=== PATIENT | female | born 1990 | race Caucasian/White ===

== ENCOUNTER 2018-07-28 06:35 | Inpatient (IN) | payer OTHER ==
[2018-07-28] MEDS ORDERED: ONDANSETRON 4 MG/2 ML VIAL ONE (06:44)
[2018-07-28] MEDS ORDERED: ONDANSETRON 4 MG/2 ML VIAL IVP ONE (06:54)
[2018-07-28] MEDS ORDERED: NS 1,000 ML IV ONE ×2 (06:56→09:01)
[2018-07-28 07:06] LABS: PLATELET COUNT 262 10^3/uL (150-400)
--- NOTE | 2018-07-28 07:24 | EDPHY ---
H & P Stated Complaint: upper abd pain since 299, N/V Time Seen by Provider: 07/28/18 07:07 HPI/ROS: CHIEF COMPLAINT: Abdominal pain, vomiting HISTORY OF PRESENT ILLNESS: 27-year-old female presents with abdominal pain and vomiting. She awoke at 3:00 a.m. with sharp and stabbing upper abdominal pain. She went back to sleep. When she awoke at 5:45am, she had worsening upper abdominal pain, sharp and stabbing, associated with 1 episode of vomiting. She continues to have moderate upper abdominal pain. No fever, diarrhea or constipation. No prior abdominal surgery and no prior similar symptoms. REVIEW OF SYSTEMS: complete 10 point ROS reviewed and is negative except for the noted elements in the HPI - Personal History LMP (Females 10-55): 22-28 Days Ago Current Tetanus/Diphtheria Vaccine: Yes - Medical/Surgical History Hx Asthma: No Hx Chronic Respiratory Disease: No Hx Diabetes: No Hx Cardiac Disease: No Hx Renal Disease: No Hx Cirrhosis: No Hx Alcoholism: No Hx HIV/AIDS: No Hx Splenectomy or Spleen Trauma: No Other PMH: denies - Social History Smoking Status: Never smoked - Physical Exam Exam: General Appearance: Alert, pleasant Eyes: Pupils equal and round, no conjunctival pallor ENT, Mouth: Mucous membranes moist Neck: Normal inspection Respiratory: Lungs are clear to auscultation Cardiovascular: Regular rate and rhythm Gastrointestinal: Abdomen is soft, lower abdominal tenderness, especially in the right lower quadrant Neurological: A&O, nonfocal, normal gait Skin: Warm and dry Extremities: Normal inspection Psychiatric: Mood and affect normal Constitutional: Initial Vital Signs Temperature (C) 36.4 C 07/28/18 06:38 Heart Rate 108 H 07/28/18 06:38 Respiratory Rate 18 07/28/18 06:38 Blood Pressure 95/65 L 07/28/18 06:38 O2 Sat (%) 96 07/28/18 06:38 O2 Delivery Mode Room Air O2 (L/minute) 2 Allergies/Adverse Reactions: Penicillins Allergy (Verified 07/28/18 11:23) Rash shellfish derived Allergy (Verified 07/28/18 11:23) Home Medications: Medication Instructions Recorded Acetaminophen [Tylenol 325mg (*)] 325 mg PO DAILY PRN 07/28/18 Albuterol [Proventil Inhaler HFA 1 - 2 puffs IH Q4H PRN 07/28/18 (*)] Ferrous Sulfate [Ferrous Sulf 325 325 mg PO DAILY 07/28/18 MG (*)] Herbals/Supplements -Info Only 1 ea PO DAILY 07/28/18 Norethindrone [Norlyda] 0.35 mg PO DAILY 07/28/18 Spironolactone [Aldactone 25 MG 25 mg PO BID 07/28/18 (*)] Medical Decision Making - Diagnostics Imaging Results: Imaging Impressions Abdomen Ultrasound 07/28/18 07:15 Impression: 1. Complex 6.9 cm right ovarian cyst demonstrates papillary projections. Findings are suspicious and would recommend MRI and/or gynecologic evaluation. The right ovary has color flow. 2. Nonvisualization of the appendix. Findings and recommendations discussed with RAY CHILEL at 841 hour, 2018. Pelvic/Renal Ultrasound 07/28/18 07:15 Impression: 1. Complex 6.9 cm right ovarian cyst demonstrates papillary projections. Findings are suspicious and would recommend MRI and/or gynecologic evaluation. The right ovary has color flow. 2. Nonvisualization of the appendix. Findings and recommendations discussed with RAY CHILEL at 841 hour, 2018. Abdomen CT 07/28/18 09:01 Impression: 1. Suggestion of a small bowel obstruction with transition point either in the lower mid abdomen, where there is a complex adnexal cyst measuring 6.6 cm, or in the right lower quadrant where there is a loop of thickened, inflamed bowel. The latter finding could represent inflammatory (Crohn's/UC) or infectious process. Appendix is not distended. 2. Small amount of mesenteric edema and fluid. Likely reactive. Findings and recommendations discussed with RAY CHILEL at 1021 hour, 2018. Imaging: Discussed imaging studies w/ grassroots organizer Radiologist ED Course/Re-evaluation: MDM: Abd pain, vomiting with RLQ tenderness, ?appy. Sono ordered. IV NS given. 8:40 a.m.-ultrasound reveals a 6.9 cm complex ovarian cyst with good blood flow. The appendix is not visualized. Results discussed with the patient. Abdomen is soft, tenderness over McBurney's point, no pelvic tenderness. Will obtain a CT scan of the abdomen pelvis to evaluate for possible appendicitis. CT scan of the abdomen pelvis reveals a small bowel obstruction. Dr. Ace was consulted and saw the patient in the emergency department. Dr. White was consulted and will see the patient. Pt felt better while in the ED. Abd exam- unchanged. NPO throughout. Differential Diagnosis: Differential diagnosis includes though it is not limited to appendicitis, cholecystitis, diverticulitis, pyelonephritis, bowel perforation, small bowel obstruction. - Data Points Laboratory Results: Laboratory Results 07/28/18 06:55 07/28/18 06:55 07/28/18 07/28/18 07/28/18 07:58 06:55 06:55 WBC RBC Hgb Hct MCV MCH MCHC RDW Plt Count MPV Neut % (Auto) Lymph % (Auto) [place] % (Auto) Eos % (Auto) Baso % (Auto) Nucleat RBC Rel Count Absolute Neuts (auto) Absolute Lymphs (auto) Absolute Monos (auto) Absolute Eos (auto) Absolute Basos (auto) Absolute Nucleated RBC Immature Gran % Immature Gran # Sodium Potassium Chloride Carbon Dioxide Anion Gap BUN Creatinine Estimated GFR Glucose Calcium CA 125 Antigen 15.6 U/mL U/mL (0.0-35.0) Beta HCG, Qual NEGATIVE Urine Color JENY Urine Appearance CLEAR Urine pH 7.0 (5.0-7.5) Ur Specific [place] 1.024 (1.002-1.030) Urine Protein NEGATIVE (NEGATIVE) Urine Ketones NEGATIVE (NEGATIVE) Urine Blood NEGATIVE (NEGATIVE) Urine Nitrate NEGATIVE (NEGATIVE) Urine Bilirubin NEGATIVE (NEGATIVE) Urine Urobilinogen 2.0 EU H EU (0.2-1.0) Ur Leukocyte Esterase NEGATIVE (NEGATIVE) Urine Glucose NEGATIVE (NEGATIVE) 07/28/18 07/28/18 06:55 06:55 WBC 11.75 10^3/uL H 10^3/uL (3.80-9.50) RBC 4.98 10^6/uL 10^6/uL (4.18-5.33) Hgb 15.6 g/dL g/dL (12.6-16.3) Hct 45.6 % % (38.0-47.0) MCV 91.6 fL fL (81.5-99.8) MCH 31.3 pg pg (27.9-34.1) MCHC 34.2 g/dL g/dL (32.4-36.7) RDW 11.9 % % (11.5-15.2) Plt Count 262 10^3/uL 10^3/uL (150-400) MPV 10.0 fL fL (8.7-11.7) Neut % (Auto) 72.2 % % (39.3-74.2) Lymph % (Auto) 21.5 % % (15.0-45.0) [place] % (Auto) 5.0 % % (4.5-13.0) Eos % (Auto) 0.3 % L % (0.6-7.6) Baso % (Auto) 0.7 % % (0.3-1.7) Nucleat RBC Rel Count 0.0 % % (0.0-0.2) Absolute Neuts (auto) 8.49 10^3/uL H 10^3/uL (1.70-6.50) Absolute Lymphs (auto) 2.53 10^3/uL 10^3/uL (1.00-3.00) Absolute Monos (auto) 0.59 10^3/uL 10^3/uL (0.30-0.80) Absolute Eos (auto) 0.03 10^3/uL 10^3/uL (0.03-0.40) Absolute Basos (auto) 0.08 10^3/uL 10^3/uL (0.02-0.10) Absolute Nucleated RBC 0.00 10^3/uL 10^3/uL (0-0.01) Immature Gran % 0.3 % % (0.0-1.1) Immature Gran # 0.03 10^3/uL 10^3/uL (0.00-0.10) Sodium 138 mEq/L mEq/L (135-145) Potassium 4.2 mEq/L mEq/L (3.5-5.2) Chloride 101 mEq/L mEq/L (97-110) Carbon Dioxide 24 mEq/l mEq/l (22-31) Anion Gap 13 mEq/L mEq/L (6-14) BUN 17 mg/dL mg/dL (7-23) Creatinine 0.9 mg/dL mg/dL (0.6-1.0) Estimated GFR > 60 Glucose 121 mg/dL H mg/dL (70-100) Calcium 10.4 mg/dL mg/dL (8.5-10.4) CA 125 Antigen Beta HCG, Qual Urine Color Urine Appearance Urine pH Ur Specific [place] Urine Protein Urine Ketones Urine Blood Urine Nitrate Urine Bilirubin Urine Urobilinogen Ur Leukocyte Esterase Urine Glucose Medications Given: Discontinued Medications Sodium Chloride (Ns) 1,000 mls @ 0 mls/hr IV EDNOW ONE; Wide Open PRN Reason: Protocol Stop: 07/28/18 06:57 Last Admin: 07/28/18 06:57 Dose: 1,000 mls Sodium Chloride (Ns) 1,000 mls @ 0 mls/hr IV EDNOW ONE; Wide Open PRN Reason: Protocol Stop: 07/28/18 09:02 Last Admin: 07/28/18 09:04 Dose: 1,000 mls Morphine Sulfate (Morphine) 4 mg IVP EDNOW ONE Stop: 07/28/18 07:25 Last Admin: 07/28/18 07:27 Dose: 4 mg Ondansetron HCl (Zofran) 4 mg IVP EDNOW ONE Stop: 07/28/18 06:55 Last Admin: 07/28/18 06:57 Dose: 4 mg Departure - Departure Disposition: [facility] Inpatient Acute Clinical Impression: Small bowel obstruction Ovarian cyst Qualifiers: Laterality: right Qualified Code(s): N83.201 - Unspecified ovarian cyst, right side Condition: Fair
[2018-07-28] MEDS ORDERED: IOPAMIDOL (ISOVUE-300) 100 ML BTL ONE (09:28)
[2018-07-28] MEDS ORDERED: GADOBUTROL 10 ML VIAL IVP ONE (12:58)
[2018-07-28] MEDS ORDERED: ONDANSETRON 4 MG/2 ML VIAL IVP PRN ×2 (13:18)
[2018-07-28] MEDS ORDERED: HYDROmorphONE/DILAUDID 1 MG/ML INJ IVP PRN (13:18)
[2018-07-28] MEDS ORDERED: ALBUTEROL 60 PUFFS/8 GM MDI IH PRN (13:21)
[2018-07-28] MEDS ORDERED: ACETAMINOPHEN 325 MG TAB PO PRN (13:21)
--- NOTE | 2018-07-28 13:46 | GCON ---
[f rep st] CONSULTATION REFERRING PHYSICIAN: Jalen Ace MD I was asked by Dr. Jose Ace to evaluate the patient; there is concern for ovarian cyst causing small bowel obstruction. HISTORY OF PRESENT ILLNESS: Patient is a 27-year-old nulliparous female with last menstrual period about a month ago, who presented to ED with acute onset of abdominal pain and vomiting. The patient states the pain started in her upper abdomen around 0300 this morning and it woke her up. She describes pain as sharp and stabbing with no radiation. She then went back to sleep and awoke again at 0545 with worsening upper abdominal pain, and had an episode of vomiting which was mostly bile. She endorses nausea but no further vomiting since here is the hospital. Pain is minimal at this time and 05/08. The patient denies any urinary complaints and had a bowel movement this morning and noticed it was harder than usual. The patient denies any fevers, chills, chest pain, or shortness of breath. She also denies any abnormal vaginal bleeding or abnormal vaginal discharge. The patient is currently on the progestin-only pill and does not have a history of ovarian cysts. PAST INTELLECTUAL PROPERTY MANAGER HISTORY: Age of menarche 15. Cycles are mostly regular. She was on OCPs and noticed her migraine headaches were worse, about a year ago, she was switched to progestin-only pill. No history of abnormal Pap smears. Patient denies any exposure to STDs. PAST OB HISTORY: Patient is nulliparous. PAST MEDICAL HISTORY: Remarkable for migraines with headaches, acne. PAST SURGICAL HISTORY: [place] teeth extraction. CURRENT MEDICATIONS: Progestin-only pill and Spironolactone. ALLERGIES: Penicillin, reaction is rash; Shellfish. SOCIAL HISTORY: Patient is in a monogamous relationship. She denies any alcohol, tobacco, or illicit drug use. FAMILY HISTORY: Unremarkable. REVIEW OF SYSTEMS: 10-point review of systems is negative. Pertinent positives noted in HPI. LABORATORY: WBC 11.75. H and H, 15.6 and 45.6. BMP is normal except for an elevated glucose 121. Beta HCG is negative. Urine is normal. DIAGNOSTIC STUDIES: Pelvic ultrasound reveals a complex 6.9 x 6.1cm right ovarian cyst with papillary projections; there is flow. Left ovary is normal with flow. There is a small amount of free fluid in the pelvis. Uterus is heterogeneous in echotexture, measuring 7 x 3 x 4 cm. Endometrial stripe measures 0.4 cm. CAT scan of the abdomen reveals small bowel distended with fluid, measures up to 3.4 cm. There is equalization in the mid lower abdomen with possible transition point in this region. There is also thickening and decompression of a small bowel loop in the right lower quadrant. Findings are in close proximity to a right adnexal cyst which measures 6.5 cm. The appendix is normal appearing. PHYSICAL EXAMINATION: VITAL SIGNS: Stable. Blood pressure is 114/58, heart rate 80, respirations 16, saturating 93% on room air. Afebrile at 36.6. GENERAL : The patient is a well-nourished, well-developed female,. Alert and oriented x3. No apparent distress. SKIN: Warm, dry without rash. NEURO: Grossly intact. CARDIOVASCULAR: Regular rate and rhythm. LUNGS: Clear to auscultation bilaterally. ABDOMEN: There is diffuse mild tenderness, but more tenderness noted right lower quadrant. No rebound or guarding noted. PELVIC: Deferred. EXTREMITIES: Normal to inspection without calf tenderness or edema. ASSESSMENT AND PLAN: Patient is a 27-year-old nulliparous female with acute onset of abdominal pain and vomiting with a 6.9 cm complex right ovarian cyst with papillary projections and small bowel obstruction. 1) Reviewed ultrasound findings and different etiologies for a complex cyst include endometriomas, teratomas/dermoids, cystadenomas, or hemorrhagic cysts. 2) There is flow to the right ovary, so torsion is ruled out at this time. I am concerned about the papillary projections that were seen on ultrasound and feel an MRI of the pelvis with contrast is needed at this time to further evaluate the complex nature of the cyst; this cyst may represent a borderline tumor most are serous or mucinous. 3) Will hold off on taking the patient to surgery at this time, but will keep NPO for now. 4) Will check a CA-125, understand is it not used for screening purposes. 5) Will add an antiemetic for her nausea. 6) Unsure about associated SBO and exact cause, but hopefully MRI will be helpful. /[id number]/MODL MTDD
--- NOTE | 2018-07-28 14:46 | GHP ---
[f rep st] PREOP HISTORY AND PHYSICAL DATE OF ADMISSION: 07/28/2018 The patient is a 27-year-old female who presents with crampy abdominal pain after waking. She had a normal bowel movement yesterday. [place] and feels somewhat dehydrated and has not had a bowel movement for 2 days. She presents with a possible small bowel obstruction a s seen on CT scan. She, however, also has a 6 or 7 cm right ovarian cyst in the same area as the pos sible transition zone for the CT scan. Denies any diarrhea, fever, bloody bowel movements, or vomiti ng any blood. She has not been overly nauseated or vomiting. She is admitted at this time for obser vation and ARMY RANGER consult. REVIEW OF SYSTEMS: Ten-point review of systems is negative except as related to the HPI. PAST MEDICAL HISTORY: Includes exercise-induced asthma. No other major surgeries, hospitalizations, or serious illnesses. Last period was 1 month ago. SOCIAL HISTORY: She does not smoke. FAMILY HISTORY: Noncontributory. MEDICATIONS: control pills, Proventil inhaler, iron tablets and spironolactone. ALLERGIES: Penicillin. PHYSICAL EXAMINATION: GENERAL: An alert, comfortable 27-year-old female in no acute distress, afebr ile. HEENT: Nonicteric without adenopathy or oral lesions. NECK: Supple, nontender without thyrom egaly. CHEST: Clear. CARDIAC: Exam reveals a regular rhythm. ABDOMEN: Soft, slightly distended, not particularly tender. Positive bowel sounds. No hernias. PELVIS: Exam reveals her pelvis to b e intact, and internal exam was deferred to the school library media program director. EXTREMITIES: Full range of motion, fu ll pulses. NEUROLOGIC: Exam was physiologic and symmetric. PSYCH: Exam reveals her to be alert, o riented and cooperative. IMPRESSION: 1. Possible small bowel obstruction of uncertain etiology, possibly related to inflammation from her ovarian cyst. She has no history of pelvic inflammatory disease, has had no vaginal drainage or dif ficulties. 2. Right ovarian cyst. PLAN: Admit for observation, IV fluids and a ARMY RANGER consult. /[id number]/MODL
[2018-07-28] MEDS: D5W 1/2 NS W/ 20 KCl/L 1,000 ML IV SCH ×2 (15:02→22:05)
--- NOTE | 2018-07-28 15:13 | PDMN ---
Medical Necessity Medical necessity: MCG M210 intestinal obstruction SBO CT shows suggestion of SBO with transition point either in lower mid abd. , where there is complex adnexal cyst , or in RLQ where there is a loop of thickened, inflamed bowel. 27yoF with crampy abd pian, without BM X 2 days, PT will be NPO with CHAIN MENDER consult- anticipate > 2 MN ongoing monitoring further eval and tx. bowel rest. IVF, IV pain, IV antiemetics,
--- NOTE | 2018-07-28 16:43 | SOAPPROG ---
SOAP Progress Note Assessment/Plan: Assessment: 27 y/o nulliparous female with acute onset abdominal pain and vomiting with 6.9 cm complex R ovarian cyst with papillary projections and SBO HD #1 Plan: Reviewed MRI results showing a complex cystic lesion that is seen exophytic off R ovary measuring 6.6 x 6.0 cm; there is a nodular papillary solid component to the lesion along the posterosuperior margin; no suspicious pelvic lymphadenopathy seen This cyst likely represents a borderline tumor, cystadenoma, either mucinous or serous given her age and less likely cystadenocarcinoma; recommend it be surgically removed to determine exact pathology and further treatment Still unsure exact etiology of her SBO, but may be associated with inflammation Suspect that her pain earlier this morning may be from the ovary torsing on itself and now it un-torsed since flow seen on u/s and resolution of her pain without recent pain medication; there is a high risk of ovarian torsion with size of the cyst Recommend patient see GynOnc-Dr. Marcelino Merino or Vanessa Manning for surgical removal and staging if needed; if pt remains stable overnight, can be discharged home and seen as outpatient; if patient becomes unstable overnight, could proceed laparoscopically and remove R ovary as well as R tube (since about 20% of ovarian cancer starts in the fallopian tube) with frozen section and Dr. Ace could do lymph node staging if needed 07/28/18 16:44 Subjective: Pt seen and examined. She was getting ready to be taken down to MRI when I saw her earlier today. She has no complaints at this time. The pain is much better than early this morning and no pain meds needed. No further vomiting. She feels less nauseated. Objective: Vital Signs Temp Pulse Resp BP Pulse Ox 36.6 C 66 16 92/54 L 95 07/28/18 15:22 07/28/18 15:22 07/28/18 15:22 07/28/18 15:22 07/28/18 15:22 07/27/18 07/28/18 07/29/18 05:59 05:59 05:59 Intake Total 1999 Balance 1999 Physical Exam - Physical Exam General Appearance: WD/WN, alert, no apparent distress Abdomen: soft, distended (mild), other (diffuse mild tenderness, mostly tender RLQ; no rebound or guarding) Pelvic Exam: other (BME: normal size AV uterus, nontender and mobile; fullness and mild tenderness noted R adnexa; L adnexa is normal) Skin: normal color, warm/dry Neuro/Psych: alert, normal mood/affect, oriented x 3 ICD10 Worksheet Patient Problems: Problems Problem Status Onset Ovarian cyst Acute Small bowel obstruction Acute
[2018-07-29] MEDS: D5W 1/2 NS W/ 20 KCl/L 1,000 ML IV SCH (05:29)
[2018-07-29 08:58] VITALS: BP 100/71
--- NOTE | 2018-07-29 12:57 | SOAPPROG ---
[facility]AL[facility] Progress Note Assessment/Plan: Assessment/Plan: 27 Y F admitted c abdominal pain, adnexal mass, possible SBO-- related to inflammatory process, vs mechanical, vs constipation from dehydration [place]? Hx of hernia surgery at 3 y old. Symptoms are much improved. Appreciate OBGYN input. Will get SBFT to r/o SBO. If normal, will advance diet and then possibly home with follow up with recommended hydroelectric powerplant supervisor/onc surgeons per Dr. White. If not normal, will need further obs/bowel rest and then potentially surgery for both SBO and oopherectomy. S: pain is better. no n/v. O: alert, nad, smiling mmm no wob abd soft, nt ext wwp, no edema 07/29/18 12:51 Objective: Vital Signs Temp Pulse Resp BP Pulse Ox 36.3 C 67 16 100/71 97 07/29/18 08:55 07/29/18 08:55 07/29/18 08:55 07/29/18 08:55 07/29/18 08:55 07/28/18 07/29/18 07/30/18 05:59 05:59 05:59 Intake Total 2381 Output Total 700 500 Balance 1681 -500 ICD10 Worksheet Patient Problems: Problems Problem Status Onset Ovarian cyst Acute Small bowel obstruction Acute
--- NOTE | 2018-07-29 13:26 | ASMTCMCOM ---
CM Note CM Note Notes: Chart reviewed for discharge planning purposes. 27 year old female awoke during night with sharp upper abdominal pain that ultimately resulted in vomiting and brought her to the ED. Possible SBO and suggestion of possible ulcerative colitis? No significant previous history, Plan: TBD Date Signed: 07/28/2018 12:39 PM Electronically Signed By:Megha Schaefer RN
--- NOTE | 2018-07-29 13:28 | ASMTCMCOM ---
CM Note CM Note Notes: Patient being follow closely per surgery. Ovarian cyst present. For Small Bowel follow through. Pending results may require surgical plan. CM to follow for needs. Plan: TBD Date Signed: 07/29/2018 01:23 PM Electronically Signed By:Megha Schaefer RN
--- NOTE | 2018-07-29 14:19 | ASMTLACE ---
[facility] Length of stay for Answers: 1 day current admission # of Emergency department Answers: 1-2 visits in the last 6 months Score: 2 Date Signed: 07/29/2018 02:19 PM Electronically Signed By:Megha Schaefer RN
--- NOTE | 2018-07-29 14:21 | ASMTDCNOTE ---
Case Management Discharge Discharge Order Complete? Answers: Yes Transportation Arranged Answers: Family/Friends Family Notified Answers: Yes Discharge Comments Notes: Medically cleared for discharge with no needs. CM available if needs arise. Date Signed: 07/29/2018 02:21 PM Electronically Signed By:Megha Schaefer RN
== END 2018-07-29 16:45 | disposition home or self-care (01) | DRG 760 ==
LOC: OBSVTOIN 10:53 → F1N 11:50
PROVIDERS: ADMIT Surgery; ATTEND Surgery
DX: N83.202 Unspecified ovarian cyst, left side (principal); K56.609 Unspecified intestinal obstruction, unspecified as to partial versus complete obstruction; J45.909 Unspecified asthma, uncomplicated; G43.909 Migraine, unspecified, not intractable, without status migrainosus
CPT/HCPCS: 86304-90; 96374; A9585; J2270; J2405; Q9967